=== PATIENT | female | born 1955 | race Caucasian/White ===

== ENCOUNTER 2020-10-27 11:51 | Inpatient (IN) | payer MEDICARE, BC ==
--- NOTE | 2020-10-27 12:23 | ED ---
General Adult HPI - General Chief complaint: Arrhythmia/Palpitations Stated complaint: AFib Time Seen by Provider: 10/27/20 12:12 Source: patient, EMS, RN notes reviewed Mode of arrival: EMS Limitations: no limitations - History of Present Illness Initial comments: Patient is a pleasant 65-year-old female presenting to the emergency Department with complaints of palpitations. Patient has had some palpitations over the past several days. Patient was recently on Cipro for urinary tract infection. Patient denies any chest pain. Patient denies any shortness of breath. No leg pain or leg swelling. Patient states symptoms are mild and intermittent. Currently symptom-free. No history of similar symptoms previously. Patient [place] go [facility] [place] and was advised come to the emergency department - Related Data Allergies Allergy/AdvReac Type Severity Reaction Status Date / Time No Known Allergies Allergy Verified 10/27/20 12:02 Review of Systems ROS Statement: Those systems with pertinent positive or pertinent negative responses have been documented in the HPI. ROS Other: All systems not noted in ROS Statement are negative. Constitutional: Denies: fever Eyes: Denies: eye pain ENT: Denies: ear pain Respiratory: Denies: cough, dyspnea Cardiovascular: Reports: palpitations. Denies: chest pain Endocrine: Denies: fatigue Gastrointestinal: Denies: abdominal pain Genitourinary: Denies: dysuria Musculoskeletal: Denies: back pain Skin: Denies: rash Neurological: Denies: weakness Past Medical History Past Medical History: No Reported History Additional Past Medical History / Comment(s): Heart murmur History of Any Multi-Drug Resistant Organisms: None Reported Past Surgical History: No Surgical Hx Reported Past Psychological History: Anxiety Smoking Status: Never smoker Past Alcohol Use History: None Reported Past Drug Use History: None Reported General Exam Limitations: no limitations General appearance: alert, in no apparent distress Head exam: Present: normocephalic Eye exam: Present: normal appearance Neck exam: Present: normal inspection Respiratory exam: Present: normal lung sounds bilaterally Cardiovascular Exam: Present: tachycardia, irregular rhythm Expanded Peripheral pulses: 2+: Radial (R), Radial (L), Posterior Tibialis (R), Posterior Tibialis (L) GI/Abdominal exam: Present: soft. Absent: tenderness Extremities exam: Present: normal inspection. Absent: pedal edema, calf tenderness Neurological exam: Present: alert Psychiatric exam: Present: normal affect, normal mood Skin exam: Present: normal color Course Vital Signs 10/27/20 10/27/20 10/27/20 11:58 13:00 13:17 Temperature 97.7 F Pulse Rate 61 131 H 144 H Respiratory 20 18 18 Rate Blood Pressure 105/92 153/97 128/82 O2 Sat by Pulse 98 97 95 Oximetry 10/27/20 13:40 Temperature Pulse Rate 80 Respiratory 18 Rate Blood Pressure 129/72 O2 Sat by Pulse 95 Oximetry - Reevaluation(s) Reevaluation #1: 10/27/20 14:05 Patient has converted. Patient is on Cardizem drip. Anticoagulation other than aspirin will be held pending cardiology evaluation and echo. EKG #2 shows normal sinus rhythm 76. TN 144. QRS 86. QT 418. QTC 470. Left axis. Nonspecific ST-T. Normal QRS. EKG Findings - EKG Comments: EKG Findings:: A. fib with RVR, rate 142. QRS 82. QT 322. QTC 495. left axis. Normal QRS. Nonspecific ST-T. Medical Decision Making - Medical Decision Making Patient reevaluated and updated. Case was discussed in detail with Dr. Taylor, who will admit covering for Dr. Amaya's office, who sent the patient over. - Lab Data Result diagrams: 10/27/20 12:58 10/27/20 12:58 Lab Results 10/27/20 10/27/20 10/27/20 Range/Units 12:58 12:58 12:58 WBC 10.9 H (3.8-10.6) k/uL RBC 5.01 (3.80-5.40) m/uL Hgb 15.6 (11.4-16.0) gm/dL Hct 45.5 (34.0-46.0) % MCV 90.7 (80.0-100.0) fL MCH 31.1 (25.0-35.0) pg MCHC 34.3 (31.0-37.0) g/dL RDW 12.4 (11.5-15.5) % Plt Count 168 (150-450) k/uL MPV 9.4 Neutrophils % 76 % Lymphocytes % 18 % Monocytes % 4 % Eosinophils % 1 % Basophils % 1 % Neutrophils # 8.2 H (1.3-7.7) k/uL Lymphocytes # 2.0 (1.0-4.8) k/uL Monocytes # 0.4 (0-1.0) k/uL Eosinophils # 0.1 (0-0.7) k/uL Basophils # 0.1 (0-0.2) k/uL PT 10.8 (9.0-12.0) sec INR 1.0 (<1.2) APTT 24.6 (22.0-30.0) sec Sodium 141 (137-145) mmol/L Potassium 4.1 (3.5-5.1) mmol/L Chloride 108 H (98-107) mmol/L Carbon Dioxide 21 L (22-30) mmol/L Anion Gap 12 mmol/L BUN 17 (7-17) mg/dL Creatinine 0.58 (0.52-1.04) mg/dL Est GFR (CKD-EPI)AfAm >90 (>60 ml/min/1.73 sqM) Est GFR (CKD-EPI)NonAf >90 (>60 ml/min/1.73 sqM) Glucose 109 H (74-99) mg/dL Calcium 9.5 (8.4-10.2) mg/dL Magnesium 2.0 (1.6-2.3) mg/dL Total Bilirubin 0.6 (0.2-1.3) mg/dL AST 26 (14-36) U/L ALT 24 (4-34) U/L Alkaline Phosphatase 49 (38-126) U/L Troponin I (0.000-0.034) ng/mL Total Protein 7.1 (6.3-8.2) g/dL Albumin 4.5 (3.5-5.0) g/dL TSH 1.900 (0.465-4.680) mIU/L Free T4 1.02 (0.78-2.19) ng/dL Free T3 pg/mL 3.6 (2.8-5.3) pg/ml 10/27/20 Range/Units 12:58 WBC (3.8-10.6) k/uL RBC (3.80-5.40) m/uL Hgb (11.4-16.0) gm/dL Hct (34.0-46.0) % MCV (80.0-100.0) fL MCH (25.0-35.0) pg MCHC (31.0-37.0) g/dL RDW (11.5-15.5) % Plt Count (150-450) k/uL MPV Neutrophils % % Lymphocytes % % Monocytes % % Eosinophils % % Basophils % % Neutrophils # (1.3-7.7) k/uL Lymphocytes # (1.0-4.8) k/uL Monocytes # (0-1.0) k/uL Eosinophils # (0-0.7) k/uL Basophils # (0-0.2) k/uL PT (9.0-12.0) sec INR (<1.2) APTT (22.0-30.0) sec Sodium (137-145) mmol/L Potassium (3.5-5.1) mmol/L Chloride (98-107) mmol/L Carbon Dioxide (22-30) mmol/L Anion Gap mmol/L BUN (7-17) mg/dL Creatinine (0.52-1.04) mg/dL Est GFR (CKD-EPI)AfAm (>60 ml/min/1.73 sqM) Est GFR (CKD-EPI)NonAf (>60 ml/min/1.73 sqM) Glucose (74-99) mg/dL Calcium (8.4-10.2) mg/dL Magnesium (1.6-2.3) mg/dL Total Bilirubin (0.2-1.3) mg/dL AST (14-36) U/L ALT (4-34) U/L Alkaline Phosphatase (38-126) U/L Troponin I <0.012 (0.000-0.034) ng/mL Total Protein (6.3-8.2) g/dL Albumin (3.5-5.0) g/dL TSH (0.465-4.680) mIU/L Free T4 (0.78-2.19) ng/dL Free T3 pg/mL (2.8-5.3) pg/ml - Radiology Data Radiology results: image reviewed (Chest x-ray shows no acute cardiopulmonary process) Critical Care Time Critical Care Time: Yes Total Critical Care Time: 32 Disposition Clinical Impression: Atrial fibrillation with RVR Disposition: ADMITTED IP TO THIS HOSP Is patient prescribed a controlled substance at d/c from ED?: No Referrals: Armen Mejía MD [Primary Care Provider] - 1-2 days Decision Time: 14:07
[2020-10-27] MEDS ORDERED: DILTIAZEM 125 MG in SODIUM CHLORIDE 0.9% 100 ML IV SCH (12:30)
[2020-10-27 13:14] LABS: Basophils # (A) 0.1 k/uL (0-0.2); Basophils % (A) 1 %; Eosinophils # (A) 0.1 k/uL (0-0.7); Eosinophils % (A) 1 %; HCT 45.5 % (34.0-46.0); HGB 15.6 gm/dL (11.4-16.0); Lymphocytes % (A) 18 %; MCH 31.1 pg (25.0-35.0); MCHC 34.3 g/dL (31.0-37.0); MCV 90.7 fL (80.0-100.0); Mean Platelet Volume 9.4; Monocytes # (A) 0.4 k/uL (0-1.0); Monocytes % (A) 4 %; Neutrophils # (A) 8.2 k/uL (1.3-7.7); Neutrophils % (A) 76 %; Platelet Count 168 k/uL (150-450); RBC 5.01 m/uL (3.80-5.40); RDW 12.4 % (11.5-15.5); WBC 10.9 k/uL (3.8-10.6)
[2020-10-27 13:25] LABS: ALT 24 U/L (4-34); AST 26 U/L (14-36); African American GFR (CKD) >90 (>60 ml/min/1.73 sqM); Albumin 4.5 g/dL (3.5-5.0); Alkaline Phosphatase 49 U/L (38-126); Anion Gap 12 mmol/L; Blood Urea Nitrogen 17 mg/dL (7-17); Calcium 9.5 mg/dL (8.4-10.2); Carbon Dioxide 21 mmol/L (22-30); Chloride 108 mmol/L (98-107); Glucose 109 mg/dL (74-99); Non-African American GFR(CKD) >90 (>60 ml/min/1.73 sqM); Potassium 4.1 mmol/L (3.5-5.1); Sodium 141 mmol/L (137-145); Total Bilirubin 0.6 mg/dL (0.2-1.3); Total Protein 7.1 g/dL (6.3-8.2)
--- NOTE | 2020-10-27 13:28 | XR ---
EXAMINATION TYPE: XR chest 2V DATE OF EXAM: 10/27/2020 COMPARISON: NONE HISTORY: Dysrhythmia TECHNIQUE: Frontal and lateral views of the chest are obtained. FINDINGS: There is no focal air space opacity, pleural effusion, or pneumothorax seen. The cardiac silhouette size is within normal limits. There are overlying cardiac leads. There is elevation of the right hemidiaphragm. Prominent lung volumes may reflect underlying COPD. Arthropathy present at the acromioclavicular joints, there are overlying cardiac leads. The osseous structures are intact, possi ble spinal curvature. IMPRESSION: No acute cardiopulmonary process. Follow-up as indicated. Additional findings above.
[2020-10-27 13:31] LABS: Partial Thromboplastin Time 24.6 sec (22.0-30.0); Prothrombin Time 10.8 sec (9.0-12.0)
[2020-10-27 13:41] LABS: T4, Free (Free Thyroxine) 1.02 ng/dL (0.78-2.19)
[2020-10-27] MEDS ORDERED: NALOXONE 0.4 MG/ML 1 ML VIAL IV PRN (14:07)
[2020-10-27] MEDS ORDERED: SODIUM CHLORIDE 0.9% 1,000 ML IV SCH (14:15)
[2020-10-27 15:12] LABS: Appearance,Urine Clear (Clear); Bacteria,Urine Occasional /hpf; Bilirubin,Urine Negative (Negative); Blood,Urine Small (Negative); Color,Urine Colorless; Glucose,Urine (UA) Negative (Negative); Ketones,Urine Negative (Negative); Leukocyte Esterase,Urine Negative (Negative); Nitrite,Urine Negative (Negative); PH, Urine 5.5 (5.0-8.0); Protein,Urine Negative (Negative); RBC,Urine 1 /hpf (0-5); Specific Gravity,Urine 1.004 (1.001-1.035); Squamous Epithelial Cell,Urine 1 /hpf (0-4); Urobilinogen,Urine <2.0 mg/dL (<2.0); WBC,Urine 1 /hpf (0-5)
[2020-10-27] MEDS: METOPROLOL TARTRATE 12.5 MG TAB PO SCH (21:48)
--- NOTE | 2020-10-27 23:26 | P.HPIM ---
History of Present Illness H&P Date: 10/27/20 Chief Complaint: Palpitations History of presenting complaint: This is a pleasant 65-year-old patient who was just treated with 5 days of ciprofloxacin for UTI. Noticed palpitations started yesterday. Like a fluttering the chest. No dizziness or lightheadedness. No chest pain. No prior history of the same. Patient does not take any medications otherwise. Presented to ER. Found to be in atrial fibrillation with a rapid ventricular rate.On IV Cardizem drip. And patient arrived to the floor, patient reverted back to sinus rhythm. Review of systems: GEN.: None EYES: None HEENT: None NECK: None RESPIRATORY: None CARDIOVASCULAR: As above GASTROINTESTINAL: None GENITOURINARY: None MUSCULOSKELETAL: None LYMPHATICS: None HEMATOLOGICAL: None PSYCHIATRY: Anxiety NEUROLOGICAL: None Past medical history to include: Being treated for UTI. 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 Family history: Reviewed, noncontributory to presentation Physical examination: VITAL SIGNS: 97.7, 144, 18, 128/80, 95% room air GENERAL: BMI 31.3, reclining in bed, comfortable. EYES: Pupils equal. Conjunctiva normal. HEENT: External appearance of nose and ears normal, oral cavity grossly normal. NECK: JVD not raised; masses not palpable. HEART: First and second heart sounds are normal; no edema. LUNGS: Respiratory rate normal; clear to auscultation. ABDOMEN: Soft, nontender, liver spleen not palpable, no masses palpable. PSYCH: [Alert and oriented x3; mood and affect anxious. NEUROLOGICAL: Cranial nerves grossly intact; no facial asymmetry, power and sensation grossly intact. LYMPHATICS: No lymph nodes palpable in the axilla and neck INVESTIGATIONS, reviewed in the clinical context: White count 10.9 hemoglobin 15.6 platelets 168 potassium 4.1 creatinine 0.58 UA unremarkable EKG tracing personally reviewed by me-atrial fibrillation rate of 142 Chest x-ray film personally reviewed by me-lung gonzalez clear Assessment: -New onset of atrial fibrillation self-limiting, less than 24 hours duration started IV Cardizem in the ER has not reverted back to normal. -Patient has [id number] score of 1. No indication for anticoagulation -Obesity BMI 31.3 -Anxiety not otherwise specified Plan: Patient was on a Cardizem drip. This will be discontinued. Start Lopressor 12.5 by mouth twice a day. Now anticoagulation. 2-D echocardiogram. Cardiology consultation. Care was discussed with the patient question also. Past Medical History Past Medical History: No Reported History Additional Past Medical History / Comment(s): Heart murmur History of Any Multi-Drug Resistant Organisms: None Reported Past Surgical History: No Surgical Hx Reported Past Anesthesia/Blood Transfusion Reactions: No Reported Reaction Past Psychological History: Anxiety Smoking Status: Never smoker Past Alcohol Use History: None Reported Past Drug Use History: None Reported Medications and Allergies Home Medications Medication Instructions Recorded Confirmed Type Calcium Carbonate [Calcium] 600 mg PO DAILY 10/27/20 10/27/20 History Cranberry Fruit Concentrate [Azo 500 mg PO DAILY 10/27/20 10/27/20 History Cranberry] [place]-3 Fatty Acids/Fish Oil [Fish 1 cap PO DAILY 10/27/20 10/27/20 History Oil 1,000 mg Softgel] Allergies Allergy/AdvReac Type Severity Reaction Status Date / Time mold Allergy Dyspnea Verified 10/27/20 14:03 mildew Allergy Dyspnea Uncoded 10/27/20 14:03 Physical Exam Vitals: Vital Signs Temp Pulse Pulse Resp BP BP Pulse Ox 10/27/20 21:47 97 10/27/20 21:17 98.2 F 68 16 163/75 98 10/27/20 20:50 98.2 F 68 18 139/87 97 10/27/20 19:00 75 18 126/73 96 10/27/20 17:15 74 18 137/81 96 10/27/20 16:15 72 18 139/79 96 10/27/20 15:20 98.2 F 72 18 126/74 96 10/27/20 15:00 68 18 126/74 97 10/27/20 14:00 75 18 118/75 95 10/27/20 13:40 80 18 129/72 95 10/27/20 13:30 83 18 128/79 96 10/27/20 13:20 138 H 18 128/82 95 10/27/20 13:17 144 H 18 128/80 95 10/27/20 13:00 131 H 18 153/97 97 10/27/20 12:50 149/104 10/27/20 11:58 97.7 F 61 20 105/92 98 Intake and Output 10/27/20 10/27/20 10/28/20 14:59 22:59 06:59 Intake Total 20 Balance 20 Intake: Intake, IV Titration 20 Amount Sodium Chloride 0.9% 1, 20 000 ml @ 20 mls/hr IV . Q24H TIMUR Rx#:[id number] Other: # Voids 1 Weight 90.718 kg 90.718 kg Results CBC & Chem 7: 10/27/20 12:58 10/27/20 12:58 Labs: Abnormal Lab Results - Last 24 Hours (Table) 10/27/20 10/27/20 10/27/20 Range/Units 12:58 12:58 15:04 WBC 10.9 H (3.8-10.6) k/uL Neutrophils # 8.2 H (1.3-7.7) k/uL Chloride 108 H (98-107) mmol/L Carbon Dioxide 21 L (22-30) mmol/L Glucose 109 H (74-99) mg/dL Urine Blood Small H (Negative) Urine Bacteria Occasional H (None) /hpf Thrombosis Risk Factor Assmnt - Choose All That Apply Any of the Below Risk Factors Present?: No Other Risk Factors: No Other congenital or acquired thrombophilia - If yes, enter type in comment: No Thrombosis Risk Factor Assessment Level: Very Low Risk
[2020-10-28] MEDS: METOPROLOL TARTRATE 12.5 MG TAB PO SCH (10:08)
[2020-10-28 12:02] VITALS: BP 125/60; PULSE 63; RESP 18; TEMP 98.4
[2020-10-28] MEDS ORDERED: APIXABAN 5 MG TAB PO SCH (12:45)
--- NOTE | 2020-10-28 22:02 | P.DS ---
Providers Date of admission: 10/27/20 14:07 Expected date of discharge: 10/28/20 Attending physician: Tello Taylor Consults: 10/27/20 14:08 Consult Physician Urgent Consulting Provider: Maame Arthur Consult Reason/Comments: New-onset A. fib Do you want consulting provider notified?: Yes Primary care physician: Armen Bertrand [facility] Hospital Course: Chief Complaint: Palpitations History of presenting complaint: This is a pleasant 65-year-old patient who was just treated with 5 days of ciprofloxacin for UTI. Noticed palpitations started yesterday. Like a fluttering the chest. No dizziness or lightheadedness. No chest pain. No prior history of the same. Patient does not take any medications otherwise. Presented to ER. Found to be in atrial fibrillation with a rapid ventricular rate.On IV Cardizem drip. And patient arrived to the floor, patient reverted back to sinus rhythm. patient started no small does of beta tessie. Today-patient doing well. Asymptomatic. Remains in sinus rhythm. Seen by cardiology. This started the patient on eliquis.cleared for discharge. Care was discussed with the patient. consultation: [facility] Past medical history to include: Being treated for UTI. 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 Family history: Reviewed, noncontributory to presentation Physical examination: VITAL SIGNS: 98.4, 63, 18, 1 25 x 60, 96% room air GENERAL: BMI 31.3, reclining in bed, comfortable. EYES: Pupils equal. Conjunctiva normal. HEENT: External appearance of nose and ears normal, oral cavity grossly normal. NECK: JVD not raised; masses not palpable. HEART: First and second heart sounds are normal; no edema. LUNGS: Respiratory rate normal; clear to auscultation. ABDOMEN: Soft, nontender, liver spleen not palpable, no masses palpable. PSYCH: [Alert and oriented x3; mood and affect anxious. INVESTIGATIONS, reviewed in the clinical context: White count 10.9 hemoglobin 15.6 platelets 168 potassium 4.1 creatinine 0.58 UA unremarkable EKG tracing personally reviewed by me-atrial fibrillation rate of 142 Chest x-ray film personally reviewed by me-lung gonzalez clear Assessment: -New onset of atrial fibrillation self-limiting, less than 24 hours duration started IV Cardizem in the ER - reverted back to normal. -Obesity BMI 31.3 -Anxiety not otherwise specified disposition: Home Patient Condition at Discharge: Stable Plan - Discharge Summary Discharge Rx Participant: No New Discharge Prescriptions: New Apixaban [Eliquis] 5 mg PO BID #60 tab Metoprolol Tartrate [Lopressor] 12.5 mg PO BID #60 tab Continue [place]-3 Fatty Acids/Fish Oil [Fish Oil 1,000 mg Softgel] 1 cap PO DAILY Cranberry Fruit Concentrate [Azo Cranberry] 500 mg PO DAILY Calcium Carbonate [Calcium] 600 mg PO DAILY Discharge Medication List Calcium Carbonate [Calcium] 600 mg PO DAILY 10/27/20 [History] Cranberry Fruit Concentrate [Azo Cranberry] 500 mg PO DAILY 10/27/20 [History] [place]-3 Fatty Acids/Fish Oil [Fish Oil 1,000 mg Softgel] 1 cap PO DAILY 10/27/20 [History] Apixaban [Eliquis] 5 mg PO BID #60 tab 10/28/20 [Rx] Metoprolol Tartrate [Lopressor] 12.5 mg PO BID #60 tab 10/28/20 [Rx] Follow up Appointment(s)/Referral(s): Dino Hines DO [STAFF PHYSICIAN] - 1 Week (office will call you with appt. time) Armen Mejía MD [Primary Care Provider] - 1-2 days Patient Instructions/Handouts: A-fib (Atrial Fibrillation) (DC) Activity/Diet/Wound Care/Special Instructions: Eliquis filled at [facility] - copay is $20 Discharge Disposition: HOME SELF-CARE
--- NOTE | 2020-10-29 17:54 | ECHOF ---
Referral Reason:New-onset A. fib with RVR MEASUREMENTS -------- HEIGHT: 170.2 cm WEIGHT: 90.7 kg BP: 126/74 RVIDd: 2.9 cm (< 3.3) IVSd: 1.3 cm (0.6 - 1.1) LVIDd: 5.1 cm (3.9 - 5.3) LVPWd: 1.1 cm (0.6 - 1.1) IVSs: 1.9 cm LVIDs: 3.2 cm LVPWs: 1.3 cm LA Diam: 3.9 cm (2.7 - 3.8) LAESV Index (A-L): 27.53 ml/m Ao Diam: 3.3 cm (2.0 - 3.7) AV Cusp: 2.0 cm (1.5 - 2.6) MV EXCURSION: 15.856 mm (> 18.000) MV EF SLOPE: 76 mm/s (70 - 150) EPSS: 1.2 cm MV E Yamil: 0.88 m/s MV DecT: 232 ms MV A Yamil: 0.69 m/s MV E/A Ratio: 1.28 RAP: 5.00 mmHg RVSP: 32.44 mmHg FINDINGS -------- This was a technically good study. The left ventricular size is normal. There is mild concentric left ventricular hypertrophy. Overa ll left ventricular systolic function is normal with, an EF between 60 - 65 %. The right ventricle is normal in size. Normal LA size by volume 22+/-6 ml/m2. The right atrium is normal in size. Aortic valve is trileaflet and is mildly thickened. There is mild aortic regurgitation. The mitral valve leaflets are mildly thickened. Mild mitral annular calcification present. There is trace mitral regurgitation. Mild tricuspid regurgitation present. Right ventricular systolic pressure is normal at < 35 mmHg. Trace/mild (physiologic) pulmonic regurgitation. The aortic root size is normal. Normal inferior vena cava with normal inspiratory collapse consistent with estimated right atrial pre ssure of 5 mmHg. Echo free space represents a pericardial fat pad. There is no pericardial effusion. CONCLUSIONS -------- 1. The left ventricular size is normal. 2. There is mild concentric left ventricular hypertrophy. 3. Overall left ventricular systolic function is normal with, an EF between 60 - 65 %. 4. Normal LA size by volume 22+/-6 ml/m2. 5. Aortic valve is trileaflet and is mildly thickened. 6. There is mild aortic regurgitation. 7. The mitral valve leaflets are mildly thickened. 8. Mild mitral annular calcification present. 9. There is trace mitral regurgitation. 10. Mild tricuspid regurgitation present. 11. Trace/mild (physiologic) pulmonic regurgitation. 12. Normal inferior vena cava with normal inspiratory collapse consistent with estimated right atrial pressure of 5 mmHg. 13. Echo free space represents a pericardial fat pad. 14. There is no pericardial effusion. MEDICAL RECEPTION: NELI Crooks
--- NOTE | 2020-10-31 16:11 | P.CRDCN ---
History of Present Illness Consult date: 10/31/20 History of present illness: CHIEF COMPLAINT: A. fib HISTORY OF PRESENT ILLNESS: This is a 65-year-old female with no significant past medical history. Patient does not follow with a [facility]. We have been asked to see the patient in consultation for A. fib with RVR. Patient presented to the hospital after feeling palpitations over the past few days. She was found to be in A. fib with RVR. She was started on a Cardizem drip in the emergency room. She has since converted to sinus mechanism. She denies chest pain or pressure. Denies shortness of breath. DIAGNOSTICS: EKG reveals A. fib with RVR Chest xray negative for acute process Laboratory data: WBC 10.9. Hemoglobin 15.6. Platelet count 168. Sodium 141. Potassium 4.1. BUN 17. Creatinine 0.58. Magnesium 2.0. Troponin negative 1. TSH 1.90 Current home cardiac medications include none Echocardiogram completed revealing ejection fraction 60-65%, mild aortic regurgitation, trace mitral regurgitation and mild tricuspid regurgitation REVIEW OF SYSTEMS: At the time of my exam: CONSTITUTIONAL: Denies fever or chills. HEENT: Denies blurred vision, vision changes, or eye pain. Denies hemoptysis CARDIOVASCULAR: Denies chest pain, orthopnea, PND or palpitations RESPIRATORY: No shortness of breath. GASTROINTESTINAL: Denies abdominal pain. Denies nausea or vomiting. HEMATOLOGIC: Denies bleeding disorders. GENITOURINARY: Denies any blood in urine. SKIN: Denies pruitis. Denies rash. PHYSICAL EXAM: VITAL SIGNS: Reviewed. GENERAL: Well-developed in no acute distress. HEENT: Head is normocephalic. Pupils are equal, round. Sclerae anicteric. Mucous membranes of the mouth are moist. Neck supple. No JVD or thyromegaly LUNGS: Respirations even and unlabored. Lungs essentially clear to auscultation bilaterally. HEART: Regular rate and rhythm. S1 and S2 heard. ABDOMEN: Soft. Nondistended. Nontender. EXTREMITIES: Normal range of motion. No clubbing or cyanosis. Peripheral pulses intact. No lower extremity edema NEUROLOGIC: Awake and alert. Oriented x 3. ASSESSMENT: Palpitations New-onset paroxysmal atrial fibrillation with RVR, currently maintaining sinus rhythm PLAN: Patient started on Eliquis and metoprolol She is stable for discharge home today. She is to follow up on an outpatient basis. Nurse practitioner note has been reviewed by physician. Signing provider agrees with the documented findings, assessment, and plan of care. Past Medical History Past Medical History: No Reported History Additional Past Medical History / Comment(s): Heart murmur History of Any Multi-Drug Resistant Organisms: None Reported Past Surgical History: No Surgical Hx Reported Past Anesthesia/Blood Transfusion Reactions: No Reported Reaction Past Psychological History: Anxiety Smoking Status: Never smoker Past Alcohol Use History: None Reported Past Drug Use History: None Reported Medications and Allergies Home Medications Medication Instructions Recorded Confirmed Type Calcium Carbonate [Calcium] 600 mg PO DAILY 10/27/20 10/27/20 History Cranberry Fruit Concentrate [Azo 500 mg PO DAILY 10/27/20 10/27/20 History Cranberry] [place]-3 Fatty Acids/Fish Oil [Fish 1 cap PO DAILY 10/27/20 10/27/20 History Oil 1,000 mg Softgel] Apixaban [Eliquis] 5 mg PO BID #60 tab 10/28/20 Rx Metoprolol Tartrate [Lopressor] 12.5 mg PO BID #60 tab 10/28/20 Rx Allergies Allergy/AdvReac Type Severity Reaction Status Date / Time mold Allergy Dyspnea Verified 10/27/20 14:03 mildew Allergy Dyspnea Uncoded 10/27/20 14:03 Results 10/27/20 12:58 10/27/20 12:58 10/27/20 12:58 10/27/20 12:58
== END 2020-10-28 14:36 | disposition home or self-care (01) | DRG 310 ==
LOC: EC 11:51 → 3SCARD 14:07
PROVIDERS: ADMIT Hospitalist; ATTEND Hospitalist
DX: I48.0 Paroxysmal atrial fibrillation (principal); F41.9 Anxiety disorder, unspecified; E66.9 Obesity, unspecified; Z79.01 Long term (current) use of anticoagulants; Z68.31 Body mass index [BMI] 31.0-31.9, adult; Z87.440 Personal history of urinary (tract) infections; Z91.09 Other allergy status, other than to drugs and biological substances
CPT/HCPCS: 36415; 71046; 80053; 81001; 83735; 84439; 84443; 84481; 84484; 85025; 85610; 85730; 93005; 93306; 94760; 96365; 96366; 99291

== ENCOUNTER 2020-12-08 05:08 | Emergency (ER) | payer MEDICARE, BC ==
[2020-12-08 05:14] VITALS: TEMP 98.2
[2020-12-08 05:37] LABS: Basophils % (A) 0 %; Eosinophils # (A) 0.2 k/uL (0-0.7); Eosinophils % (A) 3 %; HCT 45.9 % (34.0-46.0); HGB 15.7 gm/dL (11.4-16.0); Lymphocytes # (A) 1.9 k/uL (1.0-4.8); Lymphocytes % (A) 24 %; MCH 31.3 pg (25.0-35.0); MCHC 34.1 g/dL (31.0-37.0); MCV 91.6 fL (80.0-100.0); Monocytes # (A) 0.3 k/uL (0-1.0); Monocytes % (A) 4 %; Neutrophils # (A) 5.3 k/uL (1.3-7.7); Neutrophils % (A) 67 %; Platelet Count 150 k/uL (150-450); RBC 5.01 m/uL (3.80-5.40); RDW 13.2 % (11.5-15.5); WBC 7.8 k/uL (3.8-10.6)
--- NOTE | 2020-12-08 05:38 | ED ---
Arrhythmia/Palpitations HPI - General Chief Complaint: Arrhythmia/Palpitations Stated Complaint: Palpitations Time Seen by Provider: 12/08/20 05:13 Source: patient, EMS Mode of arrival: EMS Limitations: no limitations - History of Present Illness Initial Comments: This patient is a 65-year-old woman who presents to be evaluated for rapid heartbeat. The patient was recently diagnosed with atrial fibrillation which has been controlled with metoprolol. The patient states that she had gotten up to use the bathroom this morning. She states that after urination went to go back to bed but found she had to urinate again, and then noticed palpitations. She used her home monitor and found that her heart rate was very high, called EMS and was brought here. The patient is denying chest pain. MD Complaint: palpitations -: minutes(s) Context: awoke with symptoms Arrhythmia History: atrial fibrillation Associated Symptoms: denies other symptoms - Related Data Home Medications Medication Instructions Recorded Confirmed Calcium Carbonate [Calcium] 600 mg PO DAILY 10/27/20 10/27/20 [place]-3 Fatty Acids/Fish Oil [Fish 1 cap PO DAILY 10/27/20 10/27/20 Oil 1,000 mg Softgel] Apixaban [Eliquis] 5 mg PO BID@0630,1830 12/08/20 12/08/20 Metoprolol Tartrate [Lopressor] 25 mg PO BID@0630,1830 12/08/20 12/08/20 Allergies Allergy/AdvReac Type Severity Reaction Status Date / Time mold Allergy Dyspnea Verified 12/08/20 07:09 mildew Allergy Dyspnea Uncoded 12/08/20 07:09 Review of Systems ROS Statement: Those systems with pertinent positive or pertinent negative responses have been documented in the HPI. ROS Other: All systems not noted in ROS Statement are negative. Constitutional: Denies: fever, chills Eyes: Denies: vision change Respiratory: Denies: cough, dyspnea Cardiovascular: Reports: palpitations. Denies: chest pain, edema, syncope Gastrointestinal: Denies: abdominal pain, nausea, vomiting, diarrhea, melena, hematochezia Genitourinary: Reports: frequency. Denies: dysuria, hematuria Musculoskeletal: Denies: back pain Skin: Denies: rash Neurological: Denies: headache, weakness, numbness Psychiatric: Reports: anxiety Past Medical History Past Medical History: Atrial Fibrillation Additional Past Medical History / Comment(s): Heart murmur History of Any Multi-Drug Resistant Organisms: None Reported Past Surgical History: No Surgical Hx Reported Past Anesthesia/Blood Transfusion Reactions: No Reported Reaction Past Psychological History: Anxiety Smoking Status: Never smoker Past Alcohol Use History: None Reported Past Drug Use History: None Reported General Exam Limitations: no limitations General appearance: alert, in no apparent distress Head exam: Present: atraumatic, normocephalic Eye exam: Present: normal appearance. Absent: scleral icterus, conjunctival injection ENT exam: Present: normal oropharynx Neck exam: Present: normal inspection, full ROM Respiratory exam: Present: normal lung sounds bilaterally. Absent: respiratory distress, wheezes, rales, rhonchi, stridor Cardiovascular Exam: Present: tachycardia, irregular rhythm, normal heart sounds. Absent: systolic murmur, diastolic murmur, rubs, gallop GI/Abdominal exam: Present: soft. Absent: distended, tenderness, guarding, rebound, rigid, mass Extremities exam: Present: normal inspection, normal capillary refill. Absent: pedal edema, calf tenderness Back exam: Present: normal inspection. Absent: CVA tenderness (R), CVA tenderness (L) Neurological exam: Present: alert Skin exam: Present: warm, dry, intact, normal color. Absent: rash Course Vital Signs 12/08/20 12/08/20 12/08/20 05:09 06:03 06:23 Temperature 98.2 F Pulse Rate 144 H 72 63 Respiratory 18 18 16 Rate Blood Pressure 148/58 124/62 O2 Sat by Pulse 94 L 95 95 Oximetry EKG Findings - EKG Results: EKG: interpreted by ERMD EKG shows: tachycardia (Rate 143 bpm), atrial fibrillation - [place], [place], Hypertrophy, ST Abn: QRS axis and voltage: left axis deviation (-30 to -90) Medical Decision Making - Lab Data Result diagrams: 12/08/20 05:17 12/08/20 05:17 Lab Results 12/08/20 12/08/20 12/08/20 Range/Units 05:17 05:17 05:17 WBC 7.8 (3.8-10.6) k/uL RBC 5.01 (3.80-5.40) m/uL Hgb 15.7 (11.4-16.0) gm/dL Hct 45.9 (34.0-46.0) % MCV 91.6 (80.0-100.0) fL MCH 31.3 (25.0-35.0) pg MCHC 34.1 (31.0-37.0) g/dL RDW 13.2 (11.5-15.5) % Plt Count 150 (150-450) k/uL MPV 10.0 Neutrophils % 67 % Lymphocytes % 24 % Monocytes % 4 % Eosinophils % 3 % Basophils % 0 % Neutrophils # 5.3 (1.3-7.7) k/uL Lymphocytes # 1.9 (1.0-4.8) k/uL Monocytes # 0.3 (0-1.0) k/uL Eosinophils # 0.2 (0-0.7) k/uL Basophils # 0.0 (0-0.2) k/uL PT 10.6 (9.0-12.0) sec INR 1.0 (<1.2) APTT 24.8 (22.0-30.0) sec Sodium 144 (137-145) mmol/L Potassium 3.8 (3.5-5.1) mmol/L Chloride 107 (98-107) mmol/L Carbon Dioxide 26 (22-30) mmol/L Anion Gap 11 mmol/L BUN 16 (7-17) mg/dL Creatinine 0.53 (0.52-1.04) mg/dL Est GFR (CKD-EPI)AfAm >90 (>60 ml/min/1.73 sqM) Est GFR (CKD-EPI)NonAf >90 (>60 ml/min/1.73 sqM) Glucose 122 H (74-99) mg/dL Calcium 9.6 (8.4-10.2) mg/dL Magnesium 2.2 (1.6-2.3) mg/dL Total Bilirubin 0.7 (0.2-1.3) mg/dL AST 23 (14-36) U/L ALT 28 (4-34) U/L Alkaline Phosphatase 47 (38-126) U/L Troponin I (0.000-0.034) ng/mL Total Protein 7.6 (6.3-8.2) g/dL Albumin 4.8 (3.5-5.0) g/dL Urine Color Urine Appearance (Clear) Urine pH (5.0-8.0) Ur Specific [place] (1.001-1.035) Urine Protein (Negative) Urine Glucose (UA) (Negative) Urine Ketones (Negative) Urine Blood (Negative) Urine Nitrite (Negative) Urine Bilirubin (Negative) Urine Urobilinogen (<2.0) mg/dL Ur Leukocyte Esterase (Negative) Urine RBC (0-5) /hpf Urine WBC (0-5) /hpf Ur Squamous Epith Cells (0-4) /hpf Urine Bacteria (None) /hpf Urine Mucus (None) /hpf 12/08/20 12/08/20 Range/Units 05:17 06:56 WBC (3.8-10.6) k/uL RBC (3.80-5.40) m/uL Hgb (11.4-16.0) gm/dL Hct (34.0-46.0) % MCV (80.0-100.0) fL MCH (25.0-35.0) pg MCHC (31.0-37.0) g/dL RDW (11.5-15.5) % Plt Count (150-450) k/uL MPV Neutrophils % % Lymphocytes % % Monocytes % % Eosinophils % % Basophils % % Neutrophils # (1.3-7.7) k/uL Lymphocytes # (1.0-4.8) k/uL Monocytes # (0-1.0) k/uL Eosinophils # (0-0.7) k/uL Basophils # (0-0.2) k/uL PT (9.0-12.0) sec INR (<1.2) APTT (22.0-30.0) sec Sodium (137-145) mmol/L Potassium (3.5-5.1) mmol/L Chloride (98-107) mmol/L Carbon Dioxide (22-30) mmol/L Anion Gap mmol/L BUN (7-17) mg/dL Creatinine (0.52-1.04) mg/dL Est GFR (CKD-EPI)AfAm (>60 ml/min/1.73 sqM) Est GFR (CKD-EPI)NonAf (>60 ml/min/1.73 sqM) Glucose (74-99) mg/dL Calcium (8.4-10.2) mg/dL Magnesium (1.6-2.3) mg/dL Total Bilirubin (0.2-1.3) mg/dL AST (14-36) U/L ALT (4-34) U/L Alkaline Phosphatase (38-126) U/L Troponin I <0.012 (0.000-0.034) ng/mL Total Protein (6.3-8.2) g/dL Albumin (3.5-5.0) g/dL Urine Color Colorless Urine Appearance Clear (Clear) Urine pH 7.5 (5.0-8.0) Ur Specific [place] 1.008 (1.001-1.035) Urine Protein Negative (Negative) Urine Glucose (UA) Negative (Negative) Urine Ketones Negative (Negative) Urine Blood Trace H (Negative) Urine Nitrite Negative (Negative) Urine Bilirubin Negative (Negative) Urine Urobilinogen <2.0 (<2.0) mg/dL Ur Leukocyte Esterase Negative (Negative) Urine RBC 4 (0-5) /hpf Urine WBC <1 (0-5) /hpf Ur Squamous Epith Cells <1 (0-4) /hpf Urine Bacteria Occasional H (None) /hpf Urine Mucus Rare H (None) /hpf Disposition Clinical Impression: Atrial fibrillation with RVR Disposition: HOME SELF-CARE Condition: Good Instructions (If sedation given, give patient instructions): A-fib (Atrial Fibrillation) (DC) Is patient prescribed a controlled substance at d/c from ED?: No Referrals: Armen Mejía MD [REFERRING] - 1-2 days
--- NOTE | 2020-12-08 05:43 | XR ---
EXAM: XR Chest, 1 View CLINICAL HISTORY: ITS.REASON XR Reason: chest pain TECHNIQUE: Frontal view of the chest. COMPARISON: No relevant prior studies available. FINDINGS: Lungs: No consolidation or mass. Pleural space: No acute findings Heart: No cardiomegaly. Bones/joints: No acute findings. IMPRESSION: No acute cardiopulmonary process.
[2020-12-08 05:46] LABS: ALT 28 U/L (4-34); AST 23 U/L (14-36); African American GFR (CKD) >90 (>60 ml/min/1.73 sqM); Albumin 4.8 g/dL (3.5-5.0); Alkaline Phosphatase 47 U/L (38-126); Anion Gap 11 mmol/L; Blood Urea Nitrogen 16 mg/dL (7-17); Calcium 9.6 mg/dL (8.4-10.2); Carbon Dioxide 26 mmol/L (22-30); Chloride 107 mmol/L (98-107); Glucose 122 mg/dL (74-99); Magnesium 2.2 mg/dL (1.6-2.3); Non-African American GFR(CKD) >90 (>60 ml/min/1.73 sqM); Partial Thromboplastin Time 24.8 sec (22.0-30.0); Potassium 3.8 mmol/L (3.5-5.1); Prothrombin Time 10.6 sec (9.0-12.0); Sodium 144 mmol/L (137-145); Total Bilirubin 0.7 mg/dL (0.2-1.3); Total Protein 7.6 g/dL (6.3-8.2)
[2020-12-08] MEDS: METOPROLOL TARTRATE 5 MG/5 ML VIAL IVP SCH ×3 (06:01→06:23)
[2020-12-08] MEDS ORDERED: METOPROLOL TARTRATE 25 MG TAB PO STA (06:13)
[2020-12-08 06:24] VITALS: BP 124/62; PULSE 63; RESP 16
[2020-12-08 07:05] LABS: Appearance,Urine Clear (Clear); Bacteria,Urine Occasional /hpf; Bilirubin,Urine Negative (Negative); Blood,Urine Trace (Negative); Color,Urine Colorless; Glucose,Urine (UA) Negative (Negative); Ketones,Urine Negative (Negative); Leukocyte Esterase,Urine Negative (Negative); Mucus,Urine Rare /hpf; Nitrite,Urine Negative (Negative); PH, Urine 7.5 (5.0-8.0); Protein,Urine Negative (Negative); RBC,Urine 4 /hpf (0-5); Specific Gravity,Urine 1.008 (1.001-1.035); Squamous Epithelial Cell,Urine <1 /hpf (0-4); Urobilinogen,Urine <2.0 mg/dL (<2.0); WBC,Urine <1 /hpf (0-5)
== END 2020-12-08 07:37 | disposition home or self-care (01) ==
LOC: EC 05:08
DX: I48.91 Unspecified atrial fibrillation (principal); Z79.01 Long term (current) use of anticoagulants; Z79.899 Other long term (current) drug therapy; Z91.018 Allergy to other foods; Z91.048 Other nonmedicinal substance allergy status
CPT/HCPCS: 36415; 71045; 80053; 81001; 83735; 84484; 85025; 85610; 85730; 93005; 96374; 99285

== ENCOUNTER 2020-12-17 03:25 | Emergency (ER) | payer MEDICARE, BC ==
[2020-12-17 03:44] VITALS: TEMP 97.6
[2020-12-17] MEDS ORDERED: METOPROLOL TARTRATE 5 MG/5 ML VIAL IVP STA (04:10)
--- NOTE | 2020-12-17 04:12 | ED ---
Anxiety HPI - General Chief Complaint: Anxiety Stated Complaint: Anxiety Time Seen by Provider: 12/17/20 03:33 Source: patient, EMS Mode of arrival: EMS - History of Present Illness MD Complaint: anxiety, heart racing -: hour(s) Symptoms: palpitations Place: home Previous History of Same: Yes Severity: mild Quality: intermittent Provoking factors: none known Improves With: nothing Worsens With: nothing - Related Data Home Medications: Home Medications Medication Instructions Recorded Confirmed Calcium Carbonate [Calcium] 600 mg PO DAILY 10/27/20 12/08/20 [place]-3 Fatty Acids/Fish Oil [Fish 1 cap PO DAILY 10/27/20 12/08/20 Oil 1,000 mg Softgel] Apixaban [Eliquis] 5 mg PO BID@0630,1830 12/08/20 12/08/20 Metoprolol Tartrate [Lopressor] 25 mg PO BID@0630,1830 12/08/20 12/08/20 Allergies/Adverse Reactions: Allergies Allergy/AdvReac Type Severity Reaction Status Date / Time mold Allergy Dyspnea Verified 12/08/20 07:09 mildew Allergy Dyspnea Uncoded 12/08/20 07:09 Review of Systems ROS Statement: Those systems with pertinent positive or pertinent negative responses have been documented in the HPI. ROS Other: All systems not noted in ROS Statement are negative. Constitutional: Denies: fever, chills Respiratory: Denies: cough, dyspnea Cardiovascular: Reports: palpitations. Denies: chest pain, orthopnea, edema, syncope Gastrointestinal: Denies: abdominal pain, nausea, vomiting Genitourinary: Denies: dysuria, hematuria Musculoskeletal: Denies: back pain Skin: Denies: rash Neurological: Denies: headache, weakness, numbness Psychiatric: Reports: anxiety Past Medical History Past Medical History: Atrial Fibrillation Additional Past Medical History / Comment(s): Heart murmur History of Any Multi-Drug Resistant Organisms: None Reported Past Surgical History: No Surgical Hx Reported Past Anesthesia/Blood Transfusion Reactions: No Reported Reaction Past Psychological History: Anxiety Smoking Status: Never smoker Past Alcohol Use History: None Reported Past Drug Use History: None Reported General Exam Limitations: no limitations General appearance: alert, in no apparent distress Head exam: Present: atraumatic, normocephalic Eye exam: Present: normal appearance. Absent: scleral icterus, conjunctival injection ENT exam: Present: normal oropharynx Neck exam: Present: normal inspection Respiratory exam: Present: normal lung sounds bilaterally. Absent: respiratory distress, wheezes, rales, rhonchi, stridor Cardiovascular Exam: Present: irregular rhythm, normal heart sounds. Absent: sy stolic murmur, diastolic murmur, rubs, gallop GI/Abdominal exam: Present: soft. Absent: distended, tenderness, guarding, rebound, rigid, mass Extremities exam: Present: normal inspection, normal capillary refill. Absent: pedal edema, calf tenderness Back exam: Present: normal inspection. Absent: CVA tenderness (R), CVA t enderness (L) Neurological exam: Present: alert Psychiatric exam: Present: anxious Skin exam: Present: warm, dry, intact, normal color. Absent: rash Course Vital Signs 12/17/20 12/17/20 12/17/20 03:31 03:36 03:40 Temperature 97.6 F Pulse Rate 68 115 H Respiratory 20 18 Rate Blood Pressure 114/88 114/88 O2 Sat by Pulse 95 97 96 Oximetry 12/17/20 12/17/20 12/17/20 04:20 04:30 04:40 Temperature Pulse Rate 101 H 114 H 105 H Respiratory 16 16 18 Rate Blood Pressure 107/83 O2 Sat by Pulse 95 96 95 Oximetry 12/17/20 12/17/20 12/17/20 04:51 05:00 05:10 Temperature Pulse Rate 108 H 110 H 101 H Respiratory 18 18 16 Rate Blood Pressure 103/63 O2 Sat by Pulse 94 L 94 L Oximetry 12/17/20 12/17/20 12/17/20 05:20 05:30 05:40 Temperature Pulse Rate 78 96 93 Respiratory 19 15 18 Rate Blood Pressure 101/65 O2 Sat by Pulse 94 L 94 L 95 Oximetry 12/17/20 12/17/20 12/17/20 05:50 06:00 06:10 Temperature Pulse Rate 80 80 93 Respiratory 15 19 16 Rate Blood Pressure 100/71 104/66 O2 Sat by Pulse 96 95 97 Oximetry 12/17/20 07:00 Temperature 97.6 F Pulse Rate 81 Respiratory 18 Rate Blood Pressure 112/69 O2 Sat by Pulse 96 Oximetry Medical Decision Making - Lab Data Result diagrams: 12/17/20 04:38 12/17/20 04:38 Lab Results 12/17/20 12/17/2021 Range/Units 04:38 04:38 04:38 WBC 8.2 (3.8-10.6) k/uL RBC 4.60 (3.80-5.40) m/uL Hgb 14.4 (11.4-16.0) gm/dL Hct 42.0 (34.0-46.0) % MCV 91.2 (80.0-100.0) fL MCH 31.2 (25.0-35.0) pg MCHC 34.2 (31.0-37.0) g/dL RDW 12.6 (11.5-15.5) % Plt Count 144 L (150-450) k/uL MPV 9.8 Neutrophils % 72 % Lymphocytes % 22 % Monocytes % 4 % Eosinophils % 2 % Basophils % 0 % Neutrophils # 5.9 (1.3-7.7) k/uL Lymphocytes # 1.8 (1.0-4.8) k/uL Monocytes # 0.3 (0-1.0) k/uL Eosinophils # 0.1 (0-0.7) k/uL Basophils # 0.0 (0-0.2) k/uL D-Dimer <0.17 (<0.60) mg/L FEU Sodium 144 (137-145) mmol/L Potassium 3.8 (3.5-5.1) mmol/L Chloride 108 H (98-107) mmol/L Carbon Dioxide 25 (22-30) mmol/L Anion Gap 11 mmol/L BUN 12 (7-17) mg/dL Creatinine 0.50 L (0.52-1.04) mg/dL Est GFR (CKD-EPI)AfAm >90 (>60 ml/min/1.73 sqM) Est GFR (CKD-EPI)NonAf >90 (>60 ml/min/1.73 sqM) Glucose 114 H (74-99) mg/dL Calcium 9.4 (8.4-10.2) mg/dL Magnesium 2.4 H (1.6-2.3) mg/dL Total Bilirubin 0.6 (0.2-1.3) mg/dL AST 34 (14-36) U/L ALT 94 H (4-34) U/L Alkaline Phosphatase 47 (38-126) U/L Troponin I (0.000-0.034) ng/mL Total Protein 6.9 (6.3-8.2) g/dL Albumin 4.4 (3.5-5.0) g/dL 12/17/20 Range/Units 04:38 WBC (3.8-10.6) k/uL RBC (3.80-5.40) m/uL Hgb (11.4-16.0) gm/dL Hct (34.0-46.0) % MCV (80.0-100.0) fL MCH (25.0-35.0) pg MCHC (31.0-37.0) g/dL RDW (11.5-15.5) % Plt Count (150-450) k/uL MPV Neutrophils % % Lymphocytes % % Monocytes % % Eosinophils % % Basophils % % Neutrophils # (1.3-7.7) k/uL Lymphocytes # (1.0-4.8) k/uL Monocytes # (0-1.0) k/uL Eosinophils # (0-0.7) k/uL Basophils # (0-0.2) k/uL D-Dimer (<0.60) mg/L FEU Sodium (137-145) mmol/L Potassium (3.5-5.1) mmol/L Chloride (98-107) mmol/L Carbon Dioxide (22-30) mmol/L Anion Gap mmol/L BUN (7-17) mg/dL Creatinine (0.52-1.04) mg/dL Est GFR (CKD-EPI)AfAm (>60 ml/min/1.73 sqM) Est GFR (CKD-EPI)NonAf (>60 ml/min/1.73 sqM) Glucose (74-99) mg/dL Calcium (8.4-10.2) mg/dL Magnesium (1.6-2.3) mg/dL Total Bilirubin (0.2-1.3) mg/dL AST (14-36) U/L ALT (4-34) U/L Alkaline Phosphatase (38-126) U/L Troponin I <0.012 (0.000-0.034) ng/mL Total Protein (6.3-8.2) g/dL Albumin (3.5-5.0) g/dL - EKG Data -: EKG Interpreted by Tn EKG shows normal: axis (Left axis deviation), intervals, QRS complexes (Normal) Rate: tachycardia (Rate approximately 108) Interpretation: nonspecific ST-T wave changes, other (Rhythm shows atrial fibrillation with RVR and with PVCs) Disposition Clinical Impression: Atrial fibrillation with RVR Disposition: HOME SELF-CARE Condition: Good Instructions (If sedation given, give patient instructions): A-fib (Atrial Fibrillation) (DC) Is patient prescribed a controlled substance at d/c from ED?: No Referrals: Michelle Padilla MD [Primary Care Provider] - 1-2 days Enoch Kay MD [STAFF PHYSICIAN] - 1-2 days
[2020-12-17 04:50] LABS: Basophils % (A) 0 %; Eosinophils # (A) 0.1 k/uL (0-0.7); Eosinophils % (A) 2 %; HGB 14.4 gm/dL (11.4-16.0); Lymphocytes # (A) 1.8 k/uL (1.0-4.8); Lymphocytes % (A) 22 %; MCH 31.2 pg (25.0-35.0); MCHC 34.2 g/dL (31.0-37.0); MCV 91.2 fL (80.0-100.0); Mean Platelet Volume 9.8; Monocytes # (A) 0.3 k/uL (0-1.0); Monocytes % (A) 4 %; Neutrophils # (A) 5.9 k/uL (1.3-7.7); Neutrophils % (A) 72 %; Platelet Count 144 k/uL (150-450); RDW 12.6 % (11.5-15.5); WBC 8.2 k/uL (3.8-10.6)
[2020-12-17 05:10] LABS: ALT 94 U/L (4-34); AST 34 U/L (14-36); African American GFR (CKD) >90 (>60 ml/min/1.73 sqM); Albumin 4.4 g/dL (3.5-5.0); Alkaline Phosphatase 47 U/L (38-126); Anion Gap 11 mmol/L; Blood Urea Nitrogen 12 mg/dL (7-17); Calcium 9.4 mg/dL (8.4-10.2); Carbon Dioxide 25 mmol/L (22-30); Chloride 108 mmol/L (98-107); Glucose 114 mg/dL (74-99); Magnesium 2.4 mg/dL (1.6-2.3); Non-African American GFR(CKD) >90 (>60 ml/min/1.73 sqM); Potassium 3.8 mmol/L (3.5-5.1); Sodium 144 mmol/L (137-145); Total Bilirubin 0.6 mg/dL (0.2-1.3); Total Protein 6.9 g/dL (6.3-8.2)
--- NOTE | 2020-12-17 05:24 | XR ---
EXAM: XR Chest, 2 Views CLINICAL HISTORY: ITS.REASON XR Reason: Chest Pain TECHNIQUE: Frontal and lateral views of the chest. COMPARISON: 12/08/2020 FINDINGS: Lungs: No consolidation or mass. Pleural space: No effusion. Heart: No cardiomegaly. Bones/joints: No acute findings. IMPRESSION: No acute cardiopulmonary process.
[2020-12-17] MEDS ORDERED: APIXABAN 5 MG TAB PO STA (06:17)
[2020-12-17 07:02] VITALS: BP 112/69; PULSE 81; RESP 18
== END 2020-12-17 07:02 | disposition home or self-care (01) ==
LOC: EC 03:25
DX: I48.91 Unspecified atrial fibrillation (principal); I49.3 Ventricular premature depolarization; F41.9 Anxiety disorder, unspecified; Z79.01 Long term (current) use of anticoagulants; Z79.899 Other long term (current) drug therapy; Z91.048 Other nonmedicinal substance allergy status
CPT/HCPCS: 36415; 71046; 80053; 83735; 84484; 85025; 85379; 93005; 96374; 99285

== ENCOUNTER 2021-01-05 02:36 | Emergency (ER) | payer MEDICARE, BC ==
[2021-01-05 02:42] VITALS: TEMP 98.6
[2021-01-05] MEDS ORDERED: METOPROLOL TARTRATE 5 MG/5 ML VIAL IVP STA (02:55)
[2021-01-05] MEDS ORDERED: SODIUM CHLORIDE 0.9% 1,000 ML IV STA (02:55)
[2021-01-05] MEDS ORDERED: LORazepam 2 MG/ML INJ IV STA (02:55)
[2021-01-05 03:06] LABS: Basophils % (A) 0 %; Eosinophils # (A) 0.2 k/uL (0-0.7); Eosinophils % (A) 3 %; HCT 43.1 % (34.0-46.0); HGB 14.1 gm/dL (11.4-16.0); Lymphocytes % (A) 31 %; MCH 30.6 pg (25.0-35.0); MCHC 32.8 g/dL (31.0-37.0); MCV 93.3 fL (80.0-100.0); Mean Platelet Volume 10.4; Monocytes # (A) 0.3 k/uL (0-1.0); Monocytes % (A) 4 %; Neutrophils % (A) 60 %; Platelet Count 126 k/uL (150-450); RBC 4.61 m/uL (3.80-5.40); RDW 13.2 % (11.5-15.5); WBC 6.5 k/uL (3.8-10.6)
--- NOTE | 2021-01-05 03:13 | ED ---
Arrhythmia/Palpitations HPI - General Chief Complaint: Arrhythmia/Palpitations Stated Complaint: Palpitations Time Seen by Provider: 01/05/21 02:40 Source: patient, EMS, RN notes reviewed, old records reviewed Mode of arrival: EMS Limitations: no limitations - History of Present Illness Initial Comments: This is a 65-year-old female with history of atrial fibrillation coming in with A. fib. Patient states she had has had A. fib. He denies any complaints of chest pain, shortness of breath and heart rate goes. No lightheadedness dizziness or feelings of syncope. Patient's taking all medications as directed. No sick contacts or travel history, no recent nausea vomiting or diarrhea MD Complaint: rapid heart beat, "heart racing" -: hour(s) Context: occurred during rest Arrhythmia History: atrial fibrillation Associated Symptoms: shortness of breath, near-syncope Treatments Prior to Arrival: beta-tessie, calcium channel tessie - Related Data Home Medications Medication Instructions Recorded Confirmed Calcium Carbonate [Calcium] 600 mg PO DAILY 10/27/20 12/08/20 [place]-3 Fatty Acids/Fish Oil [Fish 1 cap PO DAILY 10/27/20 12/08/20 Oil 1,000 mg Softgel] Apixaban [Eliquis] 5 mg PO BID@0630,1830 12/08/20 12/08/20 Metoprolol Tartrate [Lopressor] 25 mg PO BID@0630,1830 12/08/20 12/08/20 Allergies Allergy/AdvReac Type Severity Reaction Status Date / Time mold Allergy Dyspnea Verified 12/08/20 07:09 mildew Allergy Dyspnea Uncoded 12/08/20 07:09 Review of Systems ROS Statement: Those systems with pertinent positive or pertinent negative responses have been documented in the HPI. ROS Other: All systems not noted in ROS Statement are negative. Past Medical History Past Medical History: Atrial Fibrillation Additional Past Medical History / Comment(s): Heart murmur History of Any Multi-Drug Resistant Organisms: None Reported Past Surgical History: No Surgical Hx Reported Past Anesthesia/Blood Transfusion Reactions: No Reported Reaction Past Psychological History: Anxiety Smoking Status: Never smoker Past Alcohol Use History: None Reported Past Drug Use History: None Reported General Exam Limitations: no limitations General appearance: alert, in no apparent distress Head exam: Present: atraumatic, normocephalic, normal inspection Eye exam: Present: normal appearance, PERRL, EOMI. Absent: scleral icterus, conjunctival injection, periorbital swelling ENT exam: Present: normal exam, mucous membranes moist Neck exam: Present: normal inspection. Absent: tenderness, meningismus, lymphadenopathy Respiratory exam: Present: normal lung sounds bilaterally. Absent: respiratory distress, wheezes, rales, rhonchi, stridor Cardiovascular Exam: Present: normal rhythm, tachycardia, normal heart sounds. Absent: systolic murmur, diastolic murmur, rubs, gallop, clicks GI/Abdominal exam: Present: soft, normal bowel sounds. Absent: distended, tenderness, guarding, rebound, rigid Extremities exam: Present: normal inspection, full ROM, normal capillary refill. Absent: tenderness, pedal edema, joint swelling, calf tenderness Back exam: Present: normal inspection Neurological exam: Present: alert, oriented X3, CN II-XII intact Psychiatric exam: Present: normal affect, normal mood Skin exam: Present: warm, dry, intact, normal color. Absent: rash Course Vital Signs 01/05/21 01/05/21 01/05/21 02:39 03:33 03:41 Temperature 98.6 F Pulse Rate 107 H 75 Pulse Rate [ 99 Face Burler ] Respiratory 20 18 Rate Blood Pressure 138/93 105/58 O2 Sat by Pulse 97 96 Oximetry - Reevaluation(s) Reevaluation #1: Medical record is reviewed Patient symptoms are significantly improved at this point Patient informed of results and questions are answered EKG Findings - EKG Comments: EKG Findings:: EKG is A. fib rate of 94, QRS 88 QTc 505 Medical Decision Making - Medical Decision Making 65 female with atrial fibrillation with RVR, patient also noted to have improvement of atrial fibrillation here in the ER, patient feels good for discharge home - Lab Data Result diagrams: 01/05/21 02:56 01/05/21 02:56 Lab Results 01/05/21 01/05/21 01/05/21 Range/Units 02:56 02:56 02:56 WBC 6.5 (3.8-10.6) k/uL RBC 4.61 (3.80-5.40) m/uL Hgb 14.1 (11.4-16.0) gm/dL Hct 43.1 (34.0-46.0) % MCV 93.3 (80.0-100.0) fL MCH 30.6 (25.0-35.0) pg MCHC 32.8 (31.0-37.0) g/dL RDW 13.2 (11.5-15.5) % Plt Count 126 L (150-450) k/uL MPV 10.4 Neutrophils % 60 % Lymphocytes % 31 % Monocytes % 4 % Eosinophils % 3 % Basophils % 0 % Neutrophils # 4.0 (1.3-7.7) k/uL Lymphocytes # 2.0 (1.0-4.8) k/uL Monocytes # 0.3 (0-1.0) k/uL Eosinophils # 0.2 (0-0.7) k/uL Basophils # 0.0 (0-0.2) k/uL PT 11.2 (9.0-12.0) sec INR 1.1 (<1.2) APTT 26.2 (22.0-30.0) sec Sodium (137-145) mmol/L Potassium (3.5-5.1) mmol/L Chloride (98-107) mmol/L Carbon Dioxide (22-30) mmol/L Anion Gap mmol/L BUN (7-17) mg/dL Creatinine (0.52-1.04) mg/dL Est GFR (CKD-EPI)AfAm (>60 ml/min/1.73 sqM) Est GFR (CKD-EPI)NonAf (>60 ml/min/1.73 sqM) Glucose (74-99) mg/dL Calcium (8.4-10.2) mg/dL Phosphorus (2.5-4.5) mg/dL Magnesium (1.6-2.3) mg/dL Total Bilirubin (0.2-1.3) mg/dL AST (14-36) U/L ALT (4-34) U/L Alkaline Phosphatase (38-126) U/L Troponin I (0.000-0.034) ng/mL NT-Pro-B Natriuret Pep pg/mL Total Protein (6.3-8.2) g/dL Albumin (3.5-5.0) g/dL Urine Color Colorless Urine Appearance Clear (Clear) Urine pH 7.5 (5.0-8.0) Ur Specific [place] 1.003 (1.001-1.035) Urine Protein Negative (Negative) Urine Glucose (UA) Negative (Negative) Urine Ketones Negative (Negative) Urine Blood Trace H (Negative) Urine Nitrite Negative (Negative) Urine Bilirubin Negative (Negative) Urine Urobilinogen <2.0 (<2.0) mg/dL Ur Leukocyte Esterase Negative (Negative) Urine RBC <1 (0-5) /hpf Urine WBC 1 (0-5) /hpf Ur Squamous Epith Cells 1 (0-4) /hpf Urine Bacteria Few H (None) /hpf 01/05/21 01/05/21 01/05/21 Range/Units 02:56 02:56 02:56 WBC (3.8-10.6) k/uL RBC (3.80-5.40) m/uL Hgb (11.4-16.0) gm/dL Hct (34.0-46.0) % MCV (80.0-100.0) fL MCH (25.0-35.0) pg MCHC (31.0-37.0) g/dL RDW (11.5-15.5) % Plt Count (150-450) k/uL MPV Neutrophils % % Lymphocytes % % Monocytes % % Eosinophils % % Basophils % % Neutrophils # (1.3-7.7) k/uL Lymphocytes # (1.0-4.8) k/uL Monocytes # (0-1.0) k/uL Eosinophils # (0-0.7) k/uL Basophils # (0-0.2) k/uL PT (9.0-12.0) sec INR (<1.2) APTT (22.0-30.0) sec Sodium 143 (137-145) mmol/L Potassium 3.8 (3.5-5.1) mmol/L Chloride 109 H (98-107) mmol/L Carbon Dioxide 24 (22-30) mmol/L Anion Gap 10 mmol/L BUN 18 H (7-17) mg/dL Creatinine 0.56 (0.52-1.04) mg/dL Est GFR (CKD-EPI)AfAm >90 (>60 ml/min/1.73 sqM) Est GFR (CKD-EPI)NonAf >90 (>60 ml/min/1.73 sqM) Glucose 105 H (74-99) mg/dL Calcium 9.6 (8.4-10.2) mg/dL Phosphorus 4.0 (2.5-4.5) mg/dL Magnesium 2.3 (1.6-2.3) mg/dL Total Bilirubin 0.6 (0.2-1.3) mg/dL AST 23 (14-36) U/L ALT 64 H (4-34) U/L Alkaline Phosphatase 43 (38-126) U/L Troponin I <0.012 (0.000-0.034) ng/mL NT-Pro-B Natriuret Pep 231 pg/mL Total Protein 6.8 (6.3-8.2) g/dL Albumin 4.4 (3.5-5.0) g/dL Urine Color Urine Appearance (Clear) Urine pH (5.0-8.0) Ur Specific [place] (1.001-1.035) Urine Protein (Negative) Urine Glucose (UA) (Negative) Urine Ketones (Negative) Urine Blood (Negative) Urine Nitrite (Negative) Urine Bilirubin (Negative) Urine Urobilinogen (<2.0) mg/dL Ur Leukocyte Esterase (Negative) Urine RBC (0-5) /hpf Urine WBC (0-5) /hpf Ur Squamous Epith Cells (0-4) /hpf Urine Bacteria (None) /hpf - Radiology Data Radiology results: report reviewed (Chest x-rays negative for acute disease), image reviewed Disposition Clinical Impression: Atrial fibrillation with RVR, Anxiety, Palpitations, Tachycardia Disposition: HOME SELF-CARE Condition: Fair Instructions (If sedation given, give patient instructions): Heart Palpitations (ED) Is patient prescribed a controlled substance at d/c from ED?: No Referrals: Michelle Padilla MD [Primary Care Provider] - 1-2 days
[2021-01-05 03:20] LABS: Appearance,Urine Clear (Clear); Bacteria,Urine Few /hpf; Bilirubin,Urine Negative (Negative); Blood,Urine Trace (Negative); Color,Urine Colorless; Glucose,Urine (UA) Negative (Negative); Ketones,Urine Negative (Negative); Leukocyte Esterase,Urine Negative (Negative); Nitrite,Urine Negative (Negative); PH, Urine 7.5 (5.0-8.0); Protein,Urine Negative (Negative); RBC,Urine <1 /hpf (0-5); Specific Gravity,Urine 1.003 (1.001-1.035); Squamous Epithelial Cell,Urine 1 /hpf (0-4); Urobilinogen,Urine <2.0 mg/dL (<2.0); WBC,Urine 1 /hpf (0-5)
[2021-01-05 03:21] LABS: INR 1.1 (<1.2); Partial Thromboplastin Time 26.2 sec (22.0-30.0); Prothrombin Time 11.2 sec (9.0-12.0)
[2021-01-05 03:27] LABS: ALT 64 U/L (4-34); AST 23 U/L (14-36); African American GFR (CKD) >90 (>60 ml/min/1.73 sqM); Albumin 4.4 g/dL (3.5-5.0); Alkaline Phosphatase 43 U/L (38-126); Anion Gap 10 mmol/L; Blood Urea Nitrogen 18 mg/dL (7-17); Calcium 9.6 mg/dL (8.4-10.2); Carbon Dioxide 24 mmol/L (22-30); Chloride 109 mmol/L (98-107); Glucose 105 mg/dL (74-99); Magnesium 2.3 mg/dL (1.6-2.3); Non-African American GFR(CKD) >90 (>60 ml/min/1.73 sqM); Potassium 3.8 mmol/L (3.5-5.1); Sodium 143 mmol/L (137-145); Total Bilirubin 0.6 mg/dL (0.2-1.3); Total Protein 6.8 g/dL (6.3-8.2)
[2021-01-05 03:41] VITALS: BP 105/58; PULSE 75; RESP 18
--- NOTE | 2021-01-05 04:04 | XR ---
EXAM: XR Chest, 2 Views CLINICAL HISTORY: ITS.REASON XR Reason: Weakness TECHNIQUE: Frontal and lateral views of the chest. COMPARISON: 12/17/2020 FINDINGS: Lungs: Unremarkable. No consolidation. Pleural space: Unremarkable. No pneumothorax. Heart: Cardiomegaly, unchanged from prior. Mediastinum: Unremarkable. Bones/joints: Unremarkable. IMPRESSION: Cardiomegaly with no pulmonary vascular congestion. No consolidations, effusions, or pneumothorax.
[2021-01-05] MEDS ORDERED: ASPIRIN 81 MG PO STA (04:21)
[2021-01-05] MEDS ORDERED: DILTIAZEM DRIP BOLUS FROM BAG 1 MG SOLN IV ONE (04:21)
[2021-01-05] MEDS ORDERED: LORazepam 2 MG/ML INJ IV PRN (04:21)
[2021-01-05] MEDS ORDERED: NITROGLYCERIN SL TABS 0.4 MG TAB SUBLINGUAL PRN (04:21)
[2021-01-05] MEDS ORDERED: DILTIAZEM 125 MG in SODIUM CHLORIDE 0.9% 100 ML IV SCH (04:30)
[2021-01-05] MEDS ORDERED: METOPROLOL TARTRATE 50 MG TAB PO SCH (09:00)
[2021-01-06] MEDS ORDERED: ASPIRIN 325 MG TAB PO SCH (09:00)
== END 2021-01-05 05:32 | disposition home or self-care (01) ==
LOC: EC 02:36
DX: I48.91 Unspecified atrial fibrillation (principal); F41.9 Anxiety disorder, unspecified
CPT/HCPCS: 99285; 96374; 96375; 96361; 36415; 93005; 83880; 80053; 83735; 84100; 84484; 85025; 85610; 85730; 81001; 71046; J2060

== ENCOUNTER → 2021-12-11 | Outpatient (CLI) | payer MEDICARE, BC ==
--- NOTE | 2021-12-11 11:40 | US ---
EXAMINATION TYPE: US duplex aorta DATE OF EXAM: 12/11/2021 COMPARISON: NONE CLINICAL HISTORY: Z82.49 family hx of aortic aneurysm. Family hx of AAA EXAM MEASUREMENTS: Abdominal Aorta: Proximal: 1.7 x 1.9 cm Mid: 1.4 x 1.3 cm Distal: 1.3 x 1.6 cm Bifurcation: .7 x .9 cm .7 x .9 cm Exam wnl IMPRESSION: No evidence for abdominal aortic aneurysm.
== END | disposition home or self-care (01) ==
LOC: RADUSWWP 08:51
PROVIDERS: ATTEND Family Medicine
DX: Z13.6 Encounter for screening for cardiovascular disorders (principal); Z82.49 Family history of ischemic heart disease and other diseases of the circulatory system
CPT/HCPCS: 93979

== ENCOUNTER 2022-02-18 23:37 | Emergency (ER) | payer MEDICARE, BC ==
[2022-02-18] MEDS ORDERED: ASPIRIN 81 MG PO STA (23:54)
[2022-02-18] MEDS ORDERED: SODIUM CHLORIDE 0.9% 1,000 ML IV STA (23:54)
--- NOTE | 2022-02-19 00:30 | XR ---
EXAMINATION TYPE: XR chest 1V portable DATE OF EXAM: 02/19/2022 COMPARISON: 01/05/2021 HISTORY: Chest pain TECHNIQUE: FINDINGS: Heart is normal. Lungs are clear of infiltrate. No heart failure. There are chest leads. Co stophrenic angles are clear. IMPRESSION: No active cardiopulmonary disease. Heart appears smaller than last exam.
--- NOTE | 2022-02-19 00:35 | ED ---
General Adult HPI - General Stated complaint: Palpitations Time Seen by Provider: 02/18/22 23:45 Source: RN notes reviewed - History of Present Illness Initial comments: This is a pleasant 66-year-old female with a history of atrial fibrillation. She presents to the emergency department after she started feeling palpitations earlier this evening. Patient subsequently took an extra dose of her metoprolol and states her heart rate is now down. She states at the daycare was 140. Patient previously has had ablation therapy by Dr. Higuera at [facility] in [place]. States that this is still her outpatient receptionist. Patient denying any chest pain but states that she did have some upset stomach and nausea when the heart rate was elevated. Denies any shortness of breath. Denies any fever or chills. He has had no recent illness. No thyroid issues. Patient states she did have 1 bout of atrial fibrillation since the ablation. Patient was told to take the extra dose of metoprolol and this happens. Patient is already on Eliquis. No headache, no fever or chills, no changes in vision or hearing, no sore throat or difficulty with speech, no neck pain, no chest pain or shortness of breath, no abdominal pain, no vomiting., no changes in urination or bowel movements, no numbness or tingling, no extremity pain, no skin rashes or lesions. - Related Data Home Medications Medication Instructions Recorded Confirmed Calcium Carbonate [Calcium] 600 mg PO DAILY 10/27/20 12/08/20 Avenel-3 Fatty Acids/Fish Oil [Fish 1 cap PO DAILY 10/27/20 12/08/20 Oil 1,000 mg Softgel] Apixaban [Eliquis] 5 mg PO BID@0630,1830 12/08/20 12/08/20 Metoprolol Tartrate [Lopressor] 25 mg PO BID@0630,1830 12/08/20 12/08/20 Allergies Allergy/AdvReac Type Severity Reaction Status Date / Time mold Allergy Dyspnea Verified 12/08/20 07:09 mildew Allergy Dyspnea Uncoded 12/08/20 07:09 Review of Systems ROS Statement: Those systems with pertinent positive or pertinent negative responses have been documented in the HPI. ROS Other: All systems not noted in ROS Statement are negative. Past Medical History Past Medical History: Atrial Fibrillation Additional Past Medical History / Comment(s): Heart murmur History of Any Multi-Drug Resistant Organisms: None Reported Past Surgical History: No Surgical Hx Reported Past Anesthesia/Blood Transfusion Reactions: No Reported Reaction Past Psychological History: Anxiety Smoking Status: Never smoker Past Alcohol Use History: None Reported Past Drug Use History: None Reported General Exam - General Exam Comments Initial Comments: Patient appears to be anxious, does not appear to be ill or toxic. Vital signs are stable, patient afebrile. Cranial nerves II through XII grossly intact. General appearance: alert, in no apparent distress Head exam: Present: atraumatic, normocephalic, normal inspection Eye exam: Present: normal appearance, PERRL, EOMI. Absent: scleral icterus, conjunctival injection, periorbital swelling ENT exam: Present: normal exam, mucous membranes moist Neck exam: Present: normal inspection. Absent: tenderness, meningismus, lymphadenopathy Respiratory exam: Present: normal lung sounds bilaterally. Absent: respiratory distress, wheezes, rales, rhonchi, stridor Cardiovascular Exam: Present: regular rate, irregular rhythm, normal heart sounds. Absent: normal rhythm, systolic murmur, diastolic murmur, rubs, gallop, clicks GI/Abdominal exam: Present: soft, normal bowel sounds. Absent: distended, tenderness, guarding, rebound, rigid Extremities exam: Present: normal inspection, full ROM, normal capillary refill. Absent: tenderness, pedal edema, joint swelling, calf tenderness Back exam: Present: normal inspection Neurological exam: Present: alert, oriented X3, CN II-XII intact Psychiatric exam: Present: normal affect, normal mood Skin exam: Present: warm, dry, intact, normal color. Absent: rash Course Vital Signs 02/19/22 02/19/22 00:48 02:08 Temperature 98.0 F Pulse Rate 89 84 Respiratory 16 16 Rate Blood Pressure 126/71 107/61 O2 Sat by Pulse 97 97 Oximetry - Reevaluation(s) Reevaluation #1: 02/19/22 02:18 Medical record is reviewed Symptoms are improved here in the emergency department Patient is informed of results and questions answered Patient in no distress EKG Findings - EKG Comments: EKG Findings:: EKG done at 12 AM reveals atrial fibrillation with controlled rate. Remainder of the intervals are normal. Borderline left axis deviation. No evidence of acute ST or T wave changes. When compared to the previous study from 01/05/2021 there is no significant change. Medical Decision Making - Medical Decision Making Recurrent atrial fibrillation with controlled response. Patient took an extra dose of metoprolol at home. I believe this likely controlled the patient's rat e. Patient also has a history of anxiety and apparently took a Xanax. Patient does not appear to be ill or toxic. Plan for cardiac evaluation. Probable discharge. Patient already anticoagulated. Patient was complaining of some nausea but no pain. Patient had controlled ventricular response at the time I saw her. Patient is already anticoagulated for chronic atrial fibrillation. Patient did appear to be somewhat anxious. However was not ill or toxic. All findings discussed with the patient. Follow-up discussed. Patient to call her outpatient receptionist in [facility] in the morning for further guidance. Patient's troponin was negative. BNP was negative. No evidence of acute pathology on testing here today. The case was discussed in detail with ED attending physician. Presentation, findings, treatment plan discussed in detail. History of present physician is Dr. Mckeon - Lab Data Result diagrams: 02/18/22 23:54 02/18/22 23:54 Lab Results 02/18/22 02/18/22 02/18/22 Range/Units 23:54 23:54 23:54 WBC 6.3 (3.8-10.6) k/uL RBC 4.15 (3.80-5.40) m/uL Hgb 13.3 (11.4-16.0) gm/dL Hct 39.9 (34.0-46.0) % MCV 96.1 (80.0-100.0) fL MCH 32.2 (25.0-35.0) pg MCHC 33.5 (31.0-37.0) g/dL RDW 13.5 (11.5-15.5) % Plt Count 142 L (150-450) k/uL MPV 10.4 Neutrophils % 63 % Lymphocytes % 29 % Monocytes % 5 % Eosinophils % 2 % Basophils % 0 % Neutrophils # 4.0 (1.3-7.7) k/uL Lymphocytes # 1.8 (1.0-4.8) k/uL Monocytes # 0.3 (0-1.0) k/uL Eosinophils # 0.1 (0-0.7) k/uL Basophils # 0.0 (0-0.2) k/uL PT 11.3 (9.0-12.0) sec INR 1.0 (<1.2) APTT 29.4 (22.0-30.0) sec Sodium 142 (137-145) mmol/L Potassium 3.6 (3.5-5.1) mmol/L Chloride 112 H (98-107) mmol/L Carbon Dioxide 20 L (22-30) mmol/L Anion Gap 10 mmol/L BUN 12 (7-17) mg/dL Creatinine 0.52 (0.52-1.04) mg/dL Est GFR (CKD-EPI)AfAm >90 (>60 ml/min/1.73 sqM) Est GFR (CKD-EPI)NonAf >90 (>60 ml/min/1.73 sqM) Glucose 101 H (74-99) mg/dL Calcium 8.9 (8.4-10.2) mg/dL Magnesium 2.1 (1.6-2.3) mg/dL Total Bilirubin 0.4 (0.2-1.3) mg/dL AST 27 (14-36) U/L ALT 35 H (4-34) U/L Alkaline Phosphatase 44 (38-126) U/L Troponin I (0.000-0.034) ng/mL NT-Pro-B Natriuret Pep pg/mL Total Protein 6.4 (6.3-8.2) g/dL Albumin 4.0 (3.5-5.0) g/dL TSH 3.970 (0.465-4.680) mIU/L 02/18/22 02/18/22 Range/Units 23:54 23:54 WBC (3.8-10.6) k/uL RBC (3.80-5.40) m/uL Hgb (11.4-16.0) gm/dL Hct (34.0-46.0) % MCV (80.0-100.0) fL MCH (25.0-35.0) pg MCHC (31.0-37.0) g/dL RDW (11.5-15.5) % Plt Count (150-450) k/uL MPV Neutrophils % % Lymphocytes % % Monocytes % % Eosinophils % % Basophils % % Neutrophils # (1.3-7.7) k/uL Lymphocytes # (1.0-4.8) k/uL Monocytes # (0-1.0) k/uL Eosinophils # (0-0.7) k/uL Basophils # (0-0.2) k/uL PT (9.0-12.0) sec INR (<1.2) APTT (22.0-30.0) sec Sodium (137-145) mmol/L Potassium (3.5-5.1) mmol/L Chloride (98-107) mmol/L Carbon Dioxide (22-30) mmol/L Anion Gap mmol/L BUN (7-17) mg/dL Creatinine (0.52-1.04) mg/dL Est GFR (CKD-EPI)AfAm (>60 ml/min/1.73 sqM) Est GFR (CKD-EPI)NonAf (>60 ml/min/1.73 sqM) Glucose (74-99) mg/dL Calcium (8.4-10.2) mg/dL Magnesium (1.6-2.3) mg/dL Total Bilirubin (0.2-1.3) mg/dL AST (14-36) U/L ALT (4-34) U/L Alkaline Phosphatase (38-126) U/L Troponin I <0.012 (0.000-0.034) ng/mL NT-Pro-B Natriuret Pep 217 pg/mL Total Protein (6.3-8.2) g/dL Albumin (3.5-5.0) g/dL TSH (0.465-4.680) mIU/L - Radiology Data Radiology results: report reviewed, image reviewed Disposition Clinical Impression: Chronic atrial fibrillation, Anxiety Narrative: Chronic intercurrent nature fibrillation with controlled ventricular response Disposition: HOME SELF-CARE Condition: Good Instructions (If sedation given, give patient instructions): A-fib (Atrial Fibrillation) (ED) Additional Instructions: Continue your Eliquis as directed by your outpatient receptionist. Continue metoprolol. Call your outpatient receptionist, Dr. Higuera at [facility] in [place], [place], 8a.m. in the morning for further guidance. Follow-up with your regular physician as directed. Return to the ER immediately if any symptoms worsen, new symptoms arise, or any other problems develop. Is patient prescribed a controlled substance at d/c from ED?: No Referrals: Michelle Padilla MD [Primary Care Provider] - 1-2 days Time of Disposition: 02:20
[2022-02-19 00:56] VITALS: RESP 16; TEMP 98
[2022-02-19 01:03] LABS: Basophils % (A) 0 %; Eosinophils # (A) 0.1 k/uL (0-0.7); Eosinophils % (A) 2 %; HCT 39.9 % (34.0-46.0); HGB 13.3 gm/dL (11.4-16.0); Lymphocytes # (A) 1.8 k/uL (1.0-4.8); Lymphocytes % (A) 29 %; MCH 32.2 pg (25.0-35.0); MCHC 33.5 g/dL (31.0-37.0); MCV 96.1 fL (80.0-100.0); Mean Platelet Volume 10.4; Monocytes # (A) 0.3 k/uL (0-1.0); Monocytes % (A) 5 %; Neutrophils % (A) 63 %; Platelet Count 142 k/uL (150-450); RBC 4.15 m/uL (3.80-5.40); RDW 13.5 % (11.5-15.5); WBC 6.3 k/uL (3.8-10.6)
[2022-02-19 01:23] LABS: Partial Thromboplastin Time 29.4 sec (22.0-30.0); Prothrombin Time 11.3 sec (9.0-12.0)
[2022-02-19 01:25] LABS: ALT 35 U/L (4-34); AST 27 U/L (14-36); African American GFR (CKD) >90 (>60 ml/min/1.73 sqM); Alkaline Phosphatase 44 U/L (38-126); Anion Gap 10 mmol/L; Blood Urea Nitrogen 12 mg/dL (7-17); Calcium 8.9 mg/dL (8.4-10.2); Carbon Dioxide 20 mmol/L (22-30); Chloride 112 mmol/L (98-107); Glucose 101 mg/dL (74-99); Magnesium 2.1 mg/dL (1.6-2.3); Non-African American GFR(CKD) >90 (>60 ml/min/1.73 sqM); Potassium 3.6 mmol/L (3.5-5.1); Sodium 142 mmol/L (137-145); Total Bilirubin 0.4 mg/dL (0.2-1.3); Total Protein 6.4 g/dL (6.3-8.2)
[2022-02-19 03:03] VITALS: BP 114/69; PULSE 59
== END 2022-02-19 03:03 | disposition home or self-care (01) ==
LOC: EC 23:37
DX: I48.20 Chronic atrial fibrillation, unspecified (principal); F41.9 Anxiety disorder, unspecified; Z79.01 Long term (current) use of anticoagulants; Z79.899 Other long term (current) drug therapy
CPT/HCPCS: 36415; 71045; 80053; 83735; 83880; 84443; 84484; 85025; 85610; 85730; 99285